=== PATIENT | male | born 1995 | race Caucasian/White ===

== ENCOUNTER 2017-07-22 15:42 | Emergency (ER) | payer OTHER ==
[~2017-07-22] VITALS: Ht 177.8 cm; Wt 66.0 kg
[~2017-07-22 15:42] MED LIST: VIT D
[2017-07-22 15:43] VITALS: BP 139/73; PULSE 81; RESP 18; TEMP 98.6; O2SAT 100
== END 2017-07-22 16:02 | disposition left against medical advice (07) ==
LOC: NED 15:42
DX: Z04.1 Encounter for examination and observation following transport accident (principal)
CPT/HCPCS: 99281